=== PATIENT | female | born 1970 | race Caucasian/White ===

== ENCOUNTER → 2017-12-11 08:08 | Outpatient (CLI) | payer MEDICAID ==
[~2017-12-11 08:08] MED LIST: BENADRYL50 MG; FISH OIL 1,0001 CA1 PO; HYDROCHLOROTH12.5 M1 PO; LIPITOR20 MG PO; SYNTHROID25 MCG PO
[2017-12-16 07:04] VITALS: BMI 34.3
== END | disposition home or self-care (01) ==
LOC: D.MRI 08:08
DX: R93.8 Abnormal findings on diagnostic imaging of other specified body structures (principal); R16.0 Hepatomegaly, not elsewhere classified; R79.89 Other specified abnormal findings of blood chemistry

== ENCOUNTER 2017-12-16 05:24 | Outpatient (CLI) | payer MEDICAID ==
[2017-12-11 09:53] LABS: BASOPHILS 0.1 % (0-2); EOSINOPHILS 2.5 % (0-7); HEMATOCRIT 42.4 % (36.0-48.0); HEMOGLOBIN 14.8 g/dL (12-16); IMMATURE GRANULOCYTES 0.6 % (0-5); LYMPHOCYTES 10.4 % (15-50); MCH 30.6 pg (26.0-34.0); MCHC 34.9 g/dL (31.0-37.0); MCV 87.6 fL (80.0-100.0); MEAN PLATELET VOLUME 9.6 fL (7.4-10.4); MONOCYTES 5.4 % (2-11); PLATELET COUNT 212 10x3/uL (130-400); RBC 4.84 10x6/uL (4.00-5.40); RDW 12.7 % (11.5-14.5); WBC 10.1 10x3/uL (4.8-10.8)
[2017-12-11 10:01] LABS: APTT 28.6 SECONDS (22.8-39.4)
[2017-12-11 10:02] LABS: INR 0.93 (0.85-1.17); PROTIME 12.1 SECONDS (11.6-15.0)
[2017-12-11 10:29] LABS: ALBUMIN 3.7 g/dL (3.4-5.0); ALKALINE PHOSPHATASE 219 U/L (46-116); ALT (SGPT) 119 U/L (10-68); BILIRUBIN - DIRECT 0.19 mg/dL (0.00-0.30); BILIRUBIN - INDIRECT 0.56 mg/dL (0.00-1.00); BILIRUBIN - TOTAL 0.75 mg/dL (0.2-1.3); CALC OSMOLALITY 282 mosm/kg (275-300); CALCIUM 9.9 mg/dL (8.5-10.1); CARBON DIOXIDE 27.4 mmol/L (21.0-32.0); CHLORIDE - SERUM 103 mmol/L (98-107); CHOL - HDL RATIO 2.4 ratio (2.3-4.1); CHOLESTEROL, TOTAL 200 mg/dL (0-200); CREATININE - SERUM 0.5 mg/dL (0.6-1.3); FERRITIN 96 ng/mL (3-244); GAMMA GT 587 U/L (5-85); GLUCOSE 110 mg/dL (74-106); HDL CHOLESTEROL 83 mg/dL (32-96); LDL CHOLESTEROL 100 mg/dL (0-100); LDL-HDL RATIO 1.2 ratio (1.5-3.5); PROTEIN - SERUM 7.4 g/dL (6.4-8.2); SODIUM 141 mmol/L (136-145); TRIGLYCERIDE 87 mg/dL (30-200); UREA NITROGEN 15 mg/dL (7-18); eGFR NON AFRICAN AMERICAN > 90 mL/min (90-120)
[2017-12-11 10:34] LABS: % SATURATION 12 % (15-55); IRON 44 ug/dl (35-150); TOTAL IRON BIND CAPACITY 357 ug/dl (260-445); UNSAT IRON BIND CAPACITY 313 ug/dl (150-375)
[2017-12-12 07:19] LABS: ALPHA FETOPROTEIN -(TUMOR MRK) 4.6 ng/mL (0.0-8.3); HEPATITIS C ANTIBODY 0.4 (0.0-0.9)
[2017-12-12 08:17] LABS: HAPTOGLOBIN 129 mg/dL (34-200)
[2017-12-13 12:07] LABS: MITOCHONDRIAL ANTIBODY 5.9 Units (0.0-20.0); SMOOTH MUSCLE ABS (ACTIN) 10 Units (0-19)
[2017-12-14 13:13] LABS: ANA REFLEX - ANTICHROMATIN ABS 0.2 AI (0.0-0.9); ANA REFLEX - CENTROMERE B ABS <0.2 AI (0.0-0.9); ANA REFLEX - DBL STRANDED DNA <1 IU/mL (0-9); ANA REFLEX - DIRECT Positive (Negative); ANA REFLEX - JO-1 AB <0.2 AI (0.0-0.9); ANA REFLEX - RNP ANTIBODIES 0.2 AI (0.0-0.9); ANA REFLEX - SCL-70 <0.2 AI (0.0-0.9); ANA REFLEX - SJOGRENS AB SSA >8.0 AI (0.0-0.9); ANA REFLEX - SJOGRENS AB SSB <0.2 AI (0.0-0.9); ANA REFLEX - SMITH AB 0.2 AI (0.0-0.9)
[~2017-12-16] VITALS: Ht 134.6 cm; Wt 62.3 kg
[2017-12-16 05:51] LABS: BASOPHILS 0.2 % (0-2); EOSINOPHILS 3.1 % (0-7); HEMATOCRIT 41.1 % (36.0-48.0); IMMATURE GRANULOCYTES 1.2 % (0-5); LYMPHOCYTES 14.9 % (15-50); MCHC 34.1 g/dL (31.0-37.0); MEAN PLATELET VOLUME 9.5 fL (7.4-10.4); MONOCYTES 6.8 % (2-11); NEUTROPHILS 73.8 % (40-80); PLATELET COUNT 232 10x3/uL (130-400); RBC 4.67 10x6/uL (4.00-5.40); RDW 12.8 % (11.5-14.5)
[2017-12-16 05:57] LABS: APTT 28.7 SECONDS (22.8-39.4); INR 0.92 (0.85-1.17); PROTIME 11.9 SECONDS (11.6-15.0)
[2017-12-16 06:16] LABS: CALC OSMOLALITY 283 mosm/kg (275-300); CALCIUM 9.5 mg/dL (8.5-10.1); CARBON DIOXIDE 26.9 mmol/L (21.0-32.0); CHLORIDE - SERUM 105 mmol/L (98-107); CREATININE - SERUM 0.5 mg/dL (0.6-1.3); GLUCOSE 112 mg/dL (74-106); POTASSIUM - SERUM 4.3 mmol/L (3.5-5.1); SODIUM 141 mmol/L (136-145); UREA NITROGEN 19 mg/dL (7-18); eGFR NON AFRICAN AMERICAN > 90 mL/min (90-120)
[2017-12-16] MEDS ORDERED: HYDROCHLOROTH12.5 M1 PO (06:49)
[2017-12-16] MEDS ORDERED: LIPITOR20 MG PO (06:49)
[2017-12-16] MEDS ORDERED: SYNTHROID25 MCG PO (06:50)
[2017-12-16] MEDS ORDERED: BENADRYL50 MG (06:51)
[2017-12-16] MEDS ORDERED: FISH OIL 1,0001 CA1 PO (06:51)
[2017-12-16 07:04] VITALS: BP 125/75; Ht 134.6 cm; Wt 62.3 kg
[2017-12-16 07:17] LABS: HCG URINE NEGATIVE (NEGATIVE)
[2017-12-16 11:31] LABS: PROTEIN - BODY FLUID 7.1 G/DL
== END 2017-12-16 11:15 | disposition home or self-care (01) ==
LOC: D.SP 05:24 → D.OPS 08:00 → D.SP 11:15
PROVIDERS: Internal Medicine Gastroenterology; Radiology Diagnostic Radiology
DX: K76.89 Other specified diseases of liver (principal); Z88.2 Allergy status to sulfonamides; Z01.812 Encounter for preprocedural laboratory examination